=== PATIENT | female | born 1975 | race Caucasian/White ===

== ENCOUNTER 2016-12-01 20:03 | Emergency (ER) | payer MEDICARE, OTHER ==
[2016-12-01 20:58] LABS: HEMOGLOBIN 13.9 gm/dl (12.3-15.3); RED BLOOD COUNT 4.72 M/UL (4.00-5.10); WHITE BLOOD COUNT 8.5 K/UL (4.5-11.0)
[2016-12-01 21:18] LABS: BUN/CREATININE RATIO 18 (0-10)
== END 2016-12-02 02:12 | disposition home or self-care (01) ==
LOC: ER1 20:03
PROVIDERS: Specialist/Technologist Athletic Trainer
DX: R07.2 Precordial pain (principal); I10 Essential (primary) hypertension; H54.42 Blindness, left eye, normal vision right eye; Z88.0 Allergy status to penicillin; Z88.2 Allergy status to sulfonamides; Z88.5 Allergy status to narcotic agent; Z88.8 Allergy status to other drugs, medicaments and biological substances; Z79.82 Long term (current) use of aspirin; Z90.49 Acquired absence of other specified parts of digestive tract
CPT/HCPCS: 36415; 71010; 80053; 82550; 82553; 83874; 84484; 85025; 93005; 96374; 99285; J1885

== ENCOUNTER 2017-01-19 14:37 | Emergency (ER) | payer MEDICARE, OTHER ==
[2017-01-19 17:24] LABS: HEMOGLOBIN 12.8 gm/dl (12.3-15.3); RED BLOOD COUNT 4.29 M/UL (4.00-5.10)
[2017-01-19 17:40] LABS: BUN/CREATININE RATIO 13 (0-10)
== END 2017-01-19 18:26 | disposition home or self-care (01) ==
LOC: ER1 14:37
PROVIDERS: Specialist/Technologist Athletic Trainer
DX: R07.89 Other chest pain (principal); E87.6 Hypokalemia; I10 Essential (primary) hypertension; E03.9 Hypothyroidism, unspecified; G40.909 Epilepsy, unspecified, not intractable, without status epilepticus; Z90.49 Acquired absence of other specified parts of digestive tract; G80.9 Cerebral palsy, unspecified; Z88.0 Allergy status to penicillin; Z88.2 Allergy status to sulfonamides; Z88.5 Allergy status to narcotic agent; Z88.8 Allergy status to other drugs, medicaments and biological substances
CPT/HCPCS: 36415; 71010; 80053; 82550; 82553; 83874; 84484; 85025; 93005; 96374; 99285; J1885

== ENCOUNTER → 2021-04-19 | Outpatient (CLI) | payer MEDICARE, OTHER ==
[~2021-04-19] MED LIST: K-DUR TAB 20 M20 MEQ PO
== END ==
LOC: KOH-I 11:22
DX: M54.6 Pain in thoracic spine (principal); M25.561 Pain in right knee; M25.551 Pain in right hip
CPT/HCPCS: 72070; 73502; 73564